=== PATIENT | female | born 1990 | race African-American/Black ===

== ENCOUNTER 2022-10-18 17:18 | Emergency (ER) | payer OTHER ==
[~2022-10-18] VITALS: Ht 170.2 cm; Wt 92.0 kg
[2022-10-18 17:23] VITALS: BP 104/71
[2022-10-18] MEDS ORDERED: SODIUM CHLORIDE 0.9% 1,000 ML IV ONE (20:15)
[2022-10-18] MEDS ORDERED: KETOROLAC 30MG/ML VIAL IV NR (20:30)
[2022-10-18] MEDS ORDERED: ACETAMINOPHEN 325MG TABLET PO NR (20:45)
== END 2022-10-19 00:58 | disposition home or self-care (01) ==
LOC: ER 17:18
DX: J06.9 Acute upper respiratory infection, unspecified (principal); R11.0 Nausea; R19.7 Diarrhea, unspecified; D64.9 Anemia, unspecified; Z20.822 Contact with and (suspected) exposure to COVID-19
CPT/HCPCS: 81025; 87426; 96374; 99283; C9803; J1885